=== PATIENT | male | born 1975 | race Caucasian/White ===

== ENCOUNTER 2023-02-02 02:14 | Emergency (ER) | payer BC, MEDICAID, SELFPAY ==
[2023-02-02 02:19] VITALS: BMI 19.5
--- NOTE | 2023-02-02 02:23 | W.ED.PSYCHS ---
HPI - Psych General: Chief Complaint: Psychiatric Symptoms Stated Complaint: MHE Time Seen by Provider: 02/02/23 02:15 Source: patient and police Mode of arrival: other (police) Limitations: no limitations History of Present Illness: 48-year-old male who is here from nursing home he has been incarcerated for 9 days and states he has not had his Remeron or Seroquel he has become agitated he states that he just became angry with hitting his head against the wall he had no loss conscious has a mild headache he has no other complaints he is not suicidal or homicidal states he does have some depression and he is agitated since he is out of his meds. Associated symptoms: Reports depression Review of Systems Const: Denies: fever(s), chills, body aches or change in appetite Eyes: Denies: blurry vision or eye discomfort ENMT: Denies: throat pain or dental pain Card: Denies: chest pain Resp: Denies: dyspnea GI: Denies: abdominal pain, nausea, vomiting or diarrhea : Denies: dysuria Musc: Denies: neck pain or back pain Skin/Breast: Denies: rash Neuro: Denies: headache(s) Psych: Reports: depression and irritability Zack/Lymph: Denies: easy bruising All/Imm: Denies: urticaria PFSH ED PFSH: Medical History (Updated 02/02/23 @ 02:24 by Curtis Marshall MD) Depression Social History (Updated 02/02/23 @ 02:23 by Curtis Marshall MD) Substance/Drug Use: unknown Physical Exam Const: COMMON NORMALS: no acute distress, patient oriented x3 and healthy appearing HENMT: COMMON NORMALS: normocephalic and atraumatic HEAD & SCALP: normocephalic and atraumatic Eye: COMMON NORMALS: Equal, round and reactive pupils present and EOMs intact bilaterally PUPIL: Yes Equal, round and reactive pupils present Neck/C-Spine: COMMON NORMALS: full ROM and supple Chest: COMMONS NORMALS: normal inspection of the chest and normal palpation of entire chest wall Resp: COMMON NORMALS: normal respiratory effort, No retractions, No use of accessory muscles and clear to auscultation bilaterally AUSCULTATION: clear to auscultation bilaterally Cardio: COMMON NORMALS: regular rate, regular rhythm and No murmurs present (Cardio) RATE: regular rate RHYTHM: regular rhythm GI: COMMON NORMALS: Normal to inspection, nondistended, normoactive bowel sounds present, Soft to palpation, non-tender and no masses PALPATION: Yes Soft to palpation Extremity: COMMON NORMALS: normal to inspection and full ROM Neuro: COMMON NORMALS: patient oriented x3, moves all extremities and no focal motor deficits Psych: COMMON NORMALS: mental status grossly normal, Normal thought process present and cooperative THOUGHT PROCESS: Normal thought process present Skin: COMMON NORMALS: no rashes or lesions noted and no wounds GENERAL SKIN EXAM: no rashes or lesions noted Course Vital Signs: Vital signs: Vital Signs Temperature 98 F 02/02/23 02:28 Pulse Rate 60 02/02/23 02:28 Respiratory Rate 18 02/02/23 02:28 Blood Pressure 161/90 02/02/23 02:28 Pulse Oximetry 100 02/02/23 02:28 Oxygen Delivery Me thod 02/02/23 02:28 MDM - Psych Medical Decision Making Patient presents here from nursing home for agitation he had been hitting his head against the wall he has no signs of any major injuries does not require a head CT he does have some depression he is currently in custody we will give him Geodon here we will prescribe him his Seroquel along with Remeron he is to be under suicide watch at nursing home have spoke to psychiatrist Dr. Jernigan who agrees with this as well. Discharge Plan Discharge Patient Disposition: Home Clinical Impression: Depression, Agitation Prescriptions: New Remeron 15 mg tablet 15 mg PO DAILY Qty: 30 0RF quetiapine 50 mg tablet 50 mg PO DAILY Qty: 30 0RF Discharge Orders: Discharge ED (Routine); Ordered 02/02/23 Ordered By: Curtis Marshall Discharge Diet: Advance as tolerated Discharge Activity: Resume usual activity Patient Instructions: Depression (ED) Coding Level of Care Code ED Soft Tile Setter for Jeffrey Davis
[2023-02-02 02:28] VITALS: BP 161/90; PULSE 60; RESP 18; TEMP 36.6; O2SAT 100
[2023-02-02] MEDS: acetaminophen 500 mg Tablet 1000 MG PO (02:35)
[2023-02-02] MEDS: ziprasidone 20 mg/mL SDV IM (02:35)
[2023-02-02 02:38] VITALS: BP 162/99; PULSE 75; O2SAT 98
--- NOTE | 2023-02-02 02:45 | PC.NURSE ---
Police at bedside. Patient given geodon, and d/c paper work given to police and prescriptions to be filled.
--- NOTE | 2023-02-06 13:47 | DCPLANNER ---
wireless sales manager called patient due to no primary care physician - no answer at this time
== END 2023-02-02 03:00 | disposition home or self-care (01) ==
PROVIDERS: Emergency Provider Emergency Medicine
DX: R45.1 Restlessness and agitation (principal); F32.A Depression, unspecified
CPT/HCPCS: 96372; 99284; J3486